=== PATIENT | female | born 1995 | race African-American/Black ===

== ENCOUNTER 2016-08-24 | Inpatient (IN) | payer OTHER ==
--- NOTE | ~2016-08-24 | DS ---
Unit #: [id number] #: [id number] Patient: GABRIELLA CALVO [id number] [facility] [address] [place] [address] [id number] MR#: [id number] NAME: GABRIELLA CALVO ROOM: [facility] Age: 21 Sex: F Admission Date: 08/24/2016 : 1995 Discharge Date: 08/29/2016 Attending Physician: Julian Morales M.D. Primary Care Physician: No Primary Care Physician DISCHARGE SUMMARY REASON FOR ADMISSION The patient is a 22-year-old female who was admitted with a history of cocaine and opioid addiction. HOSPITAL COURSE The patient was admitted to the [address] [place] [address] unit and placed on routine detoxification protocol for opioids. Because of complaints of anxiety she was begun on Topamax 25 mg at nighttime. She tolerated the medication well, but did continue to have some symptoms of anxiety and was, therefore, begun on Vistaril 25 mg q.6 h. She was generally pleasant and cooperative and by 08/29/2016 discharge was ordered so that the patient could go to [facility] in [place], [place] the following day. Discharge was ordered. DISCHARGE DIAGNOSES 1. Cocaine use disorder. 2. Opioid use disorder. FOLLOWUP CARE Through the auspices of [facility] in [place], [place]. DISCHARGE MEDICATIONS 1. Topamax 25 mg nightly for anxiety. 2. Vistaril 25 mg q.6 h. p.r.n. anxiety. PROGNOSIS Fair. DIET AND ACTIVITY No restrictions placed on the patient at the time of discharge. Dictated by... Julian Morales M.D. CB/brittni TD: 08/31/2016 12:23 JOB #: [id number] Unit #: [id number] #: [id number] Patient: GABRIELLA CALVO DISCHARGE SUMMARY Page 1 of 1 X Julian Morales MD X DISCHARGE SUMMARY
--- NOTE | ~2016-08-24 | CO ---
Unit #: [id number] #: [id number] Patient: SHAYLA CALVO [id number] [facility] [address] [place] [address] [id number] I MR#: [id number] NAME: SHAYLA CALVO ROOM: [facility] Age: 21 Sex: F Admission Date: 08/24/2016 : 1995 Attending Physician: Julian Morales M.D. Primary Care Physician: Primary Care Physician No Consultation Date: 08/25/2016 CONSULTATION REPORT JOB NOTE: DICTATED FOR NOT DICTATED SUBJECTIVE Shayla is a 21-year-old, admitted because of her poly illicit substance abuse. At the time of admission, she requested that she will be tested for "possible" STDs. She had no reported symptoms and told us that she just wanted to be tested to make sure she did not have anything. I spoke with the patient and let her know that we were in [facility]. Should she develop any symptoms or have concerns, she can follow up with her suede cleaner or her local [facility] for testing and treatment. Dictated by... Mayela Fuentes P.A.-C. for Lyn Pressley/mounika TD: 09/01/2016 18:42 JOB #: [id number] CONSULTATION REPORT Page 1 of 1 X Mayela Fuentes CONSULTATION REPORT
--- NOTE | ~2016-08-24 | PN ---
Unit #: [id number] #: [id number] Patient: GABRIELLA CALVO [id number] [facility] [address] [place] [address] [id number] I MR#: [id number] NAME: GABRIELLA CALVO ROOM: [facility] Age: 21 Sex: F Admission Date: 08/24/2016 : 1995 Attending Physician: Julian Morales M.D. Admitting Physician: Julian Morales M.D. Primary Care Physician: Primary Care Physician Lilo FAULKNER PROGRESS NOTES DATE 08/27/2016 DISCUSSION The patient continues active participation within the therapeutic milieu. She continues to express an interest in residential chemical dependence treatment. She is otherwise pleasant and cooperative and reports that her withdrawal symptoms are dissipating nicely. Dictated by... Julian Morales M.D. CB/bzg TD: 08/27/2016 11:54 JOB #: [id number] [facility] PROGRESS NOTES Page 1 of 1 X Julian Morales MD PROGRESS NOTE
--- NOTE | ~2016-08-24 | HP ---
Unit #: [id number] #: [id number] Patient: SHAYLA CALVO [id number] [facility] [address] [place] [address] [id number] I MR#: [id number] NAME: SHAYLA CALVO ROOM: [facility] Age: 21 Sex: F Admission Date: 08/24/2016 : 1995 Attending Physician: Julian Morales M.D. Admitting Physician: Julian Morales M.D. Primary Care Physician: Primary Care Physician No HISTORY AND PHYSICAL HISTORY OF PRESENT ILLNESS Shayla is a 21 year old admitted to [address] [place] [address] because of her poly-illicit substance abuse which includes cocaine, benzodiazepines and opioids. PAST MEDICAL HISTORY History of illicit substance abuse to include IV drugs. PAST SURGICAL HISTORY Nothing reported. ALLERGIES No known drug allergies. SOCIAL HISTORY Smokes less than 1/2 pack per day. Denies alcohol. Admits to a long history of illicit substance abuse to include IV drugs. FAMILY HISTORY Medically noncontributory. REVIEW OF SYSTEMS CONSTITUTIONAL: No fever or chills. HEENT: Denies any sore throat, ear pain or runny nose. CARDIOVASCULAR: Denies chest pain, irregular heart rhythm or palpitations. CHEST: Denies shortness of breath or cough. No hemoptysis. GASTROINTESTINAL: Denies nausea, vomiting, diarrhea or chronic constipation. ENDOCRINE: Denies history of increased thirst or urination. No recent significant weight loss or gain. GENITOURINARY: Denies dysuria, frequency, or hematuria. SKIN: Denies any rashes. HEMATOLOGIC: Denies history of increased bleeding or bruising. MUSCULOSKELETAL: Denies any hot, swollen joints. No generalized muscle pain. NEUROLOGIC: Denies problems with vision or speech. No frequent, severe headaches. No numbness, tingling or weakness in any extremities. Denies loss of bladder or bowel control. CURRENT MEDICATIONS Detox protocol. PHYSICAL EXAMINATION GENERAL: Alert, well-nourished, in no apparent distress. Unit #: [id number] #: [id number] Patient: SHAYLA CALVO VITAL SIGNS: Blood pressure 130/78, heart rate 80, respirations 16, temperature 98.6. SKIN: Warm and dry without rash or lesion. HEENT: Normocephalic. TMs not viewed. Oral and nasal passages clear. Conjunctivae clear. PERRLA. EOMs intact. NECK: Supple without lymphadenopathy or thyromegaly. HEART: Regular rate and rhythm without murmur. LUNGS: Clear. ABDOMEN: Soft, nontender. : Not done. EXTREMITIES: No evidence of cyanosis, clubbing or edema. Moves all without focal deficit. NEUROLOGICAL: Grossly within normal limits. Cranial Nerves: II: Visual day are intact. III, IV AND : Extraocular movements are intact. Pupils are equal, round and reactive to light. V: Facial sensation is grossly normal. VII: Facial movements and expression are normal. VIII: Auditory acuity grossly intact. IX, X: Uvula is midline. Phonation is normal. XI: Patient shrugs shoulders and turns head normally. XII: Tongue protrudes in the midline. Sensory and Motor Function: Sensory and motor sensation is grossly normal. Motor: moves all extremities well. Coordination: Gait is normal. Deep Tendon Reflexes: Intact. IMPRESSION Psychiatric admission. RECOMMENDATIONS PSYCHIATRIC: Per psychiatrist. MEDICAL: See no contraindications to participate in facility's activities. MEDICAL PROGNOSIS Good. MEDICAL CONDITION Stable. Dictated by... Mayela Fuentes P.A.-C. for Lyn Pressley/aldair TD: 08/24/2016 18:03 JOB #: [id number] Unit #: [id number] #: [id number] Patient: SHAYLA CALVO HISTORY AND PHYSICAL Page 1 of 1 X Mayela Fuentes HISTORY AND PHYSICAL
--- NOTE | ~2016-08-24 | PA ---
Unit #: [id number] #: [id number] Patient: GABRIELLA CALVO [id number] [facility] [address] [place] [address] [id number] I MR#: [id number] NAME: GABRIELLA CALVO ROOM: [facility] Age: 21 Sex: F Admission Date: 08/24/2016 : 1995 Date of Assessment: 08/24/2016 Attending Physician: Julian Morales M.D. Admitting Physician: Julian Morales M.D. Primary Care Physician: Primary Care Physician No PSYCHIATRIC ASSESSMENT IDENTIFYING INFORMATION The patient is a 21-year-old female admitted to the [address] [place] [address] Unit with increasing abuse of cocaine, Xanax, and opiates. CHIEF COMPLAINT None given. INFORMANT Patient, reliability is good. HISTORY OF PRESENT ILLNESS The patient is a 21-year-old female brought in transfer from [facility] in [place] where she had presented voicing positive suicidal ideation related to her ongoing abuse of psychoactive substances, specifically cocaine, benzodiazepines, and opiates. The patient does admit to a history of intravenous drug use. The patient reports that she completed the program at [facility] but was only able to maintain sobriety for about 17 days after completing the course at the end of March of 2016. The patient is currently reporting positive suicidal ideation. She reports that she has been engaging in sex acts to gain access to drugs. The patient reports ongoing suicidal ideation and hopelessness when seen today. She denies homicidal ideation. She denies recent changes in sleep or appetite. The patient states that she lives alone in an apartment which is apparently paid for by her drug dealer. PAST PSYCHIATRIC HISTORY Asthma. PAST MEDICAL HISTORY Noncontributory. MEDICATIONS None. ALLERGIES None. FAMILY HISTORY The patient reports no family history of psychiatric illness or substance abuse. SOCIAL HISTORY The patient lives alone. Her substance use history is as noted Unit #: [id number] #: [id number] Patient: GABRIELLA CALVO previously. She is a high school graduate but does not work outside the home. 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 MENTAL STATUS EXAMINATION Examination at this time reveals the patient to be a well-developed well-nourished female appearing her stated age. She is in no apparent physical distress at the time of examination. She is awake, alert, and oriented in all spheres. Her mood is dysphoric, her affect constricted. Speech is generally well-coherent. There are no gross deficits in memory or cognition noted. Intelligence is judged to be in the average range based on fund of knowledge. The patient is cooperative throughout the interview. She is currently endorsing positive suicidal ideation. She denies homicidal ideation. She denies any psychotic symptoms. Her judgment and insight appear to be reasonably intact. ASSETS AND LIABILITIES The patient's assets: Motivation for change. Liabilities: Lack of resources. DIAGNOSTIC IMPRESSION 1. Opioid use disorder. 2. Cocaine use disorder. 3. Cannabis use disorder. 4. Dysthymic disorder. TREATMENT PLAN The patient remains hospitalized for safety and stabilization. We will watch for any signs of withdrawal from opioids and benzodiazepines. Suicide precautions are in place. I will as the patient's adoption social worker to see her regarding postdischarge treatment options. ESTIMATED LENGTH OF STAY 3 to 5 days. Dictated by... Julian Morales M.D. MICHELLE/jose TD: 08/24/2016 13:11 JOB #: [id number] PSYCHIATRIC ASSESSMENT Page 1 of 1 X Julian Morales MD X PSYCHIATRIC ASSESSMENT
--- NOTE | ~2016-08-24 | PN ---
Unit #: [id number] #: [id number] Patient: GABRIELLA CALVO [id number] [facility] [address] [place] [address] [id number] MR#: [id number] NAME: GABRIELLA CALVO ROOM: [facility] Age: 21 Sex: F Admission Date: 08/24/2016 : 1995 Attending Physician: Julian Morales M.D. Admitting Physician: Julian Morales M.D. Primary Care Physician: Primary Care Physician Lilo FAULKNER PROGRESS NOTES DATE 08/28/2016 DISCUSSION The patient continues to express interest in residential chemical dependence treatment upon her discharge from this facility. She is complaining of increased anxiety and we will add p.r.n. Vistaril 25 mg q four hours. Dictated by... Julian Morales M.D. CB/christiano TD: 08/29/2016 02:15 JOB #: [id number] [facility] PROGRESS NOTES Page 1 of 1 X Julian Morales MD PROGRESS NOTE
--- NOTE | ~2016-08-24 | PN ---
Unit #: [id number] #: [id number] Patient: GABRIELLA CALVO [id number] [facility] [address] [place] [address] [id number] I MR#: [id number] NAME: GABRIELLA CALVO ROOM: [facility] Age: 21 Sex: F Admission Date: 08/24/2016 : 1995 Attending Physician: Julian Morales M.D. Admitting Physician: Julian Morales M.D. Primary Care Physician: Primary Care Physician Lilo FAULKNER PROGRESS NOTES DATE 08/25/2016 DISCUSSION The patient is a bit brighter today. She is continuing to express interest in return to 30-day chemical dependence treatment program. 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 Dictated by... Julian Morales M.D. CB/jose TD: 08/25/2016 14:04 JOB #: [id number] [facility] BAINS NOTES Page 1 of 1 X Julian Morales MD PROGRESS NOTE
--- NOTE | ~2016-08-24 | PN ---
Unit #: [id number] #: [id number] Patient: GABRIELLA CALVO [id number] [facility] [address] [place] [address] [id number] MR#: [id number] NAME: GABRIELLA CALVO ROOM: [facility] Age: 21 Sex: F Admission Date: 08/24/2016 : 1995 Attending Physician: Julian Morales M.D. Admitting Physician: Julian Morales M.D. Primary Care Physician: Primary Care Physician Lilo FAULKNER PROGRESS NOTES DATE 08/26/2016 DISCUSSION The patient continues to complain of anxiety and "racing thoughts" particularly at night. We will add Topamax 25 mg to her current medication regimen. Dictated by... Julian Morales M.D. CB/aldair TD: 08/26/2016 15:15 JOB #: [id number] [facility] PROGRESS NOTES Page 1 of 1 X Julian Morales MD X PROGRESS NOTE
[2016-08-25 10:05] LABS: BASOPHIL% 0.4 % (0-2.5); EOSINOPHIL# 0.2 X10e3 (0-0.7); EOSINOPHIL% 3.1 % (0.0-7.0); HEMATOCRIT 32.1 % (35.0-45.0); HEMOGLOBIN 9.9 gm/dL (12.0-16.0); LYMPHOCYTE# 1.3 X10e3 (1.0-3.5); LYMPHOCYTE% 17.6 % (17.0-45.0); MEAN CELL VOLUME 72.1 FL (83-96); MEAN CORPUSCULAR HEMOGLOBIN 22.3 PG (28-34); MEAN CORPUSCULAR HGB CONC 30.9 g/dL (30-36); MONOCYTE# 0.6 X10e3 (0-1.0); MONOCYTE% 8.3 % (3.0-12.0); NEUTROPHIL# 5.2 X10e3 (1.5-7.1); NEUTROPHIL% 70.6 % (40-75); PLATELET COUNT 399 X10e3 (140-420); RED BLOOD COUNT 4.46 X10e (3.90-5.30); RED CELL DISTRIBUTION WIDTH 22.4 % (11.0-15.5); WHITE BLOOD COUNT 7.4 X10e3 (4.0-10.5)
[2016-08-25 10:06] LABS: DIFF IND YES
[2016-08-25 10:14] LABS: ALBUMIN SERUM 3.5 g/dL (3.5-5.0); BILIRUBIN,TOTAL 0.8 mg/dL (0.2-2.0); POTASSIUM 4.3 mmol/L (3.5-5.1)
[2016-08-25 10:22] LABS: ANISOCYTOSIS MOD; HYPOCHROMIA MOD; MICROCYTOSIS MOD; PLATELET ESTIMATE NORMAL (NORMAL)
[2016-08-25 10:23] LABS: ELLIPTOCYTES PRESENT
[2016-08-30 09:16] LABS: HA AB IGM (HEPPAN) Nonreactive (()); HB CORE AB IGM (HEPPAN) Nonreactive (Nonreactive); HB S AG (HEPPAN) Nonreactive (Nonreactive); HEP C AB (HEPPAN) Nonreactive (Nonreactive); HEP C AB SIGNAL TO CUTOFF 0.01 ratio (<1.00)
== END 2016-08-29 16:50 | disposition home or self-care (01) | DRG 897 ==
LOC: P2S 06:08
PROVIDERS: Specialist
DX: F11.20 Opioid dependence, uncomplicated (principal); F14.20 Cocaine dependence, uncomplicated; F12.20 Cannabis dependence, uncomplicated; F34.1 Dysthymic disorder; F17.210 Nicotine dependence, cigarettes, uncomplicated
CPT/HCPCS: 80053; 80074; 84703; 85025; 86592; 87806